=== PATIENT | female | born 1960 | race Caucasian/White ===

== ENCOUNTER 2021-01-02 16:18 | Inpatient (IN) | payer OTHER ==
[~2021-01-02] VITALS: Ht 180.3 cm; Wt 137.2 kg
[2021-01-02] MEDS ORDERED: OMEPRAZOLE MAGN20 MG PO (16:51)
[2021-01-02] MEDS ORDERED: HYDROCHLOROTHIA25 M1 PO (16:51)
[2021-01-02] MEDS ORDERED: TRAZODONE50 MG PO (16:52)
[2021-01-02] MEDS ORDERED: ZESTRIL,PRINIVIL5 MG PO (16:52)
[2021-01-02] MEDS ORDERED: DESVENLAFAXINE50 M3 PO (16:52)
[2021-01-02] MEDS ORDERED: NATURE'S BLEND F1 MG PO (16:53)
[2021-01-02] MEDS ORDERED: VITAMIN B-1100 M1 PO (16:53)
[2021-01-02] MEDS ORDERED: BUSPAR5 MG PO (16:55)
[2021-01-02 16:56] LABS: BASO % 0.2 % (0.0-1.0); EOS # 0.1 10*3/uL (0.0-0.4); EOS % 1.5 % (1.0-4.0); HEMATOCRIT 34.3 % (37.0-47.0); LYMPH # 1.4 10*3/uL (1.3-4.4); LYMPH % 22.9 % (27.0-41.0); MEAN CELL VOLUME 92.2 fl (81.0-99.0); MEAN CORPUSCULAR HGB 29.6 pg (27.0-31.0); MEAN CORPUSCULAR HGB CONC 32.1 g/dl (33.0-37.0); MONO # 0.5 10*3/uL (0.1-1.0); MONO % 7.3 % (3.0-9.0); NEUT # 4.2 10*3/uL (2.3-7.9); NEUT % 67.6 % (47.0-73.0); PLATELET COUNT AUTOMATED 69 10*3/uL (130-400); RED BLOOD COUNT 3.72 10*6/uL (4.10-5.10); RED CELL DISTRI WIDTH 14.9 % (0-14.5); WHITE BLOOD COUNT 6.2 10*3/uL (4.8-10.8)
[2021-01-02] MEDS ORDERED: SYMB160 INH (16:56)
[2021-01-02] MEDS ORDERED: VENT7GM INH (16:57)
[2021-01-02 17:11] LABS: ALBUMIN 3.1 gm/dl (3.1-4.5); ALKALINE PHOSPHATASE 139 U/L (45-117); BUN 4 mg/dl (7-24); CHLORIDE 109 mmol/L (98-107); CREATININE 0.74 mg/dL (0.55-1.02); POTASSIUM 3.3 mmol/L (3.5-5.1); SGOT/AST 30 IU/L (3-35); SGPT/ALT 27 U/L (12-78); SODIUM 142 mmol/L (136-145); TOTAL PROTEIN 6.3 gm/dL (6.4-8.2)
[2021-01-02 17:12] LABS: ETHYL ALCOHOL < 3.0 mg/dl (<3); INTERNATIONAL NORM RATIO 1.2 (2.0-3.5)
[2021-01-02 17:34] LABS: BILIRUBIN Negative (Negative); BLOOD Negative (Negative); CLARITY Clear (Clear); COLOR Yellow (Yellow); GLUCOSE Negative (Negative); KETONE Negative (Negative); LEUKO ESTERASE Negative (Negative); NITRITE Negative (Negative); SPECIFIC GRAVITY 1.015 (1.001-1.030)
[2021-01-02 17:45] LABS: BACTERIA TRACE; EPITHELIAL CELLS 31-40; RBC 0-2 rbc/hpf (0-2); WBC 0-2 wbc/hpf (0-5)
[2021-01-02 17:49] LABS: URINE AMPHETAMINES < 1000 (1000ng/ml); URINE BARBITURATES < 200 (200ng/ml); URINE BENZODIAZEPINES < 200 (200ng/ml); URINE CANNABINOIDS (THC) < 50 (50ng/ml); URINE COCAINE < 300 (300ng/ml); URINE METHADONE < 300 (300ng/ml); URINE OPIATES < 300 (300ng/ml)
[2021-01-02 17:52] LABS: URINE PHENCYCLIDINE < 25 (25ng/ml)
[2021-01-02 18:00] VITALS: BP 130/70
[2021-01-02 20:00] VITALS: BP 104/49
[2021-01-03] VITALS: BP 96/46
[2021-01-03] MEDS ORDERED: BUSPAR15 MG PO (00:48)
[2021-01-03 08:00] VITALS: BP 119/71
[2021-01-03 12:00] VITALS: BP 138/63
[2021-01-03 16:00] VITALS: BP 111/59
[2021-01-03 20:00] VITALS: BP 118/50
[2021-01-04] VITALS: BP 112/59
[2021-01-04 05:38] LABS: BUN 7 mg/dl (7-24); CHLORIDE 109 mmol/L (98-107); CREATININE 0.58 mg/dL (0.55-1.02); POTASSIUM 3.4 mmol/L (3.5-5.1); SODIUM 142 mmol/L (136-145)
[2021-01-04 08:00] VITALS: BP 126/52
[2021-01-04 12:00] VITALS: BP 132/60
[2021-01-04 16:00] VITALS: BP 126/76
[2021-01-04 20:00] VITALS: BP 118/54
[2021-01-04 23:59] VITALS: BP 119/51
[2021-01-05 06:31] LABS: BUN 7 mg/dl (7-24); CHLORIDE 109 mmol/L (98-107); POTASSIUM 3.6 mmol/L (3.5-5.1); SODIUM 142 mmol/L (136-145)
[2021-01-05 06:33] LABS: CREATININE 0.53 mg/dL (0.55-1.02)
[2021-01-05] MEDS ORDERED: ATARAX,VISTARIL50 MG PO (11:09)
== END 2021-01-05 12:45 | disposition home or self-care (01) | DRG 775 ==
LOC: 4E 16:18
PROVIDERS: Hospitalist; Internal Medicine; ADMIT Family Medicine; ATTEND Family Medicine
DX: F10.230 Alcohol dependence with withdrawal, uncomplicated (principal); K70.30 Alcoholic cirrhosis of liver without ascites; J44.9 Chronic obstructive pulmonary disease, unspecified; E87.6 Hypokalemia; F41.1 Generalized anxiety disorder; F33.9 Major depressive disorder, recurrent, unspecified; D47.3 Essential (hemorrhagic) thrombocythemia; K21.9 Gastro-esophageal reflux disease without esophagitis; D64.9 Anemia, unspecified; F17.210 Nicotine dependence, cigarettes, uncomplicated; I10 Essential (primary) hypertension; E87.8 Other disorders of electrolyte and fluid balance, not elsewhere classified; R25.1 Tremor, unspecified; E80.6 Other disorders of bilirubin metabolism; F41.9 Anxiety disorder, unspecified; Z71.6 Tobacco abuse counseling; Z82.49 Family history of ischemic heart disease and other diseases of the circulatory system; Z80.1 Family history of malignant neoplasm of trachea, bronchus and lung; Z88.1 Allergy status to other antibiotic agents; Z79.51 Long term (current) use of inhaled steroids; Z79.899 Other long term (current) drug therapy